=== PATIENT | female | born 1980 | race Caucasian/White ===

== ENCOUNTER → 2022-06-06 | Outpatient (CLI) | payer OTHER ==
[~2022-06-06] MED LIST: PRENATAL1 TA2 PO; PROVENTIL0.09 MG/A1 IH; SINGULAIR 110 MG/TAB PO; ZOFRAN 4MG T4 MG/TAB PO; asthmanex
== END ==
LOC: MC.RAD 12:45
DX: Z12.31 Encounter for screening mammogram for malignant neoplasm of breast (principal)

== ENCOUNTER → 2023-08-17 | Outpatient (CLI) | payer BC | LOC: CANSCHCLI → MC.RAD 07:15 → COL.RAD 07:15 → MC.RAD 07:20 → COL.RAD 07:20 | DX: Z12.31 Encounter for screening mammogram for malignant neoplasm of breast (principal) ==